=== PATIENT | female | born 1960 | race Caucasian/White ===

== ENCOUNTER 2017-02-12 09:45 | Outpatient (CLI) | payer BC ==
[2016-08-19 16:14] VITALS: O2SAT 98
== END 2017-02-12 09:46 | disposition home or self-care (01) ==
LOC: CONVCARE 09:45
PROVIDERS: ATTEND Orthopaedic Surgery
DX: Z47.89 Encounter for other orthopedic aftercare (principal); Z98.890 Other specified postprocedural states
CPT/HCPCS: 73030

== ENCOUNTER 2018-12-08 13:27 | Emergency (ER) | payer BC ==
[2018-12-08 13:55] VITALS: BP 150/114; PULSE 103; RESP 16; TEMP 97.2; O2SAT 97
== END 2018-12-08 14:22 | disposition home or self-care (01) ==
LOC: ED 13:27
DX: S43.402A Unspecified sprain of left shoulder joint, initial encounter (principal)
CPT/HCPCS: 73030; 99282

== ENCOUNTER 2019-04-28 09:58 | Outpatient (CLI) | payer OTHER, BC ==
[2018-12-08 13:55] VITALS: O2SAT 97
== END 2019-04-28 09:59 | disposition home or self-care (01) | DRG 561 ==
LOC: CONVCARE 09:58
PROVIDERS: ATTEND Orthopaedic Surgery
DX: Z47.89 Encounter for other orthopedic aftercare (principal); Z98.890 Other specified postprocedural states
CPT/HCPCS: 73030